=== PATIENT | female | born 1950 | race Caucasian/White ===

== ENCOUNTER → 2023-11-06 09:31 | Outpatient (REF) | payer BC, SELFPAY | LOC: HWRAD 09:31 | PROVIDERS: ATTENDING PHYSICIAN Nurse Practitioner Family | DX: R05.9 Cough, unspecified (principal) | CPT/HCPCS: 71046 ==

== ENCOUNTER 2024-02-08 20:40 | Emergency (ER) | payer BC, SELFPAY ==
[2024-02-08 20:44] VITALS: BP 168/98
[2024-02-08 21:00] LABS: % Basophils 0.7 % (0-2); % Immature Granulocytes 0.3 % (0-0.5); % Lymphocytes 25.5 % (20.5-51.1); % Monocytes 7.5 % (1.7-9.3); Absolute Basophils 0.1 10^3/uL (0-0.2); Absolute Eosinophils 0.4 10^3/uL (0-0.7); Absolute Lymphocytes 2.5 10^3/uL (1.2-3.4); Absolute Monocytes 0.7 10^3/uL (0.1-0.6); Hematocrit 38.5 % (37.0-47.0); Hemoglobin 12.9 g/dL (12.0-16.0); Mean Corp Hgb Conc. 33.5 g/dL (33.0-37.0); Mean Corpuscular Hgb 29.7 pg (27.0-31.0); Mean Corpuscular Volume 88.5 fL (81.0-99.0); Mean Platelet Volume 9.2 fL (7.4-10.4); Nucleated Red Blood Cells % 0 %; Platelet Count 328 10^3/uL (130-400); Red Blood Cell Count 4.35 10^6/uL (4.20-5.40); Red Cell Dist. Width 13.2 % (11.5-14.5); White Blood Cell Count 9.7 10^3/uL (4.8-10.8)
[2024-02-08 21:17] LABS: ALT (SGPT) 15 U/L (0-35); AST (SGOT) 28 U/L (14-36); Albumin 4.5 g/dl (3.5-5.0); Alkaline Phosphatase 66 U/L (38-126); Blood Urea Nitrogen 43 mg/dl (7-17); Carbon Dioxide 22 mmol/L (22-30); Chloride 108 mmol/L (98-107); Glucose 146 mg/dl (70-99); Potassium 4.6 mmol/L (3.5-5.1); Sodium 141 mmol/L (135-145); Total Bilirubin 0.5 mg/dl (0.2-1.3); Total Protein 7.6 g/dl (6.3-8.2); eGFR 48.09
[2024-02-08 22:00] VITALS: BP 140/81
[2024-02-08 22:20] VITALS: BMI 26.1
[2024-02-08 22:25] LABS: Urine Albumin Trace (Neg - Trace); Urine Bilirubin Negative (Negative); Urine Character Clear (Clear); Urine Color Yellow; Urine Glucose Negative (Negative); Urine Ketone Negative (Negative); Urine Leukocyte 1+ (Negative); Urine Nitrite Positive (Negative); Urine Occult Blood 3+ (Negative); Urine Specific Gravity 1.025 (<1.030); Urine Urobilinogen Negative (Neg - 1+)
[2024-02-08 22:31] LABS: Urine Squamous Cell 0-2 /LPF (Few); Urine White Cell Cast 0-2 /LPF
[2024-02-08 22:32] LABS: Urine Bacteria Many (Negative); Urine White Cell >100 /HPF (0-5)
[2024-02-08 23:00] VITALS: BP 136/78
--- NOTE | 2024-02-08 23:26 | ED.GENMED ---
Addendum entered and electronically signed by Jose Martin Reid PA-C 02/12/24 07:15:
Urine culture shows greater than 100,000 colony-forming units of E. coli that is sensitive to cephalosporins. On Omnicef, no change needed
Original Note:
History of Present Illness
General
Chief Complaint: Weakness
Source: patient
Exam Limitations: none
Time Seen by Provider: 02/08/24 22:06
Nursing documentation reviewed up to this point in time: agreed with
Travel History
Have you had any contact with someone who has COVID-19?: No
Do you have any symptoms of coronavirus? Fever > 100 degrees, chills, cough, shortness of breath, sore throat, loss of taste or smell, muscle aches, or headache?: No
History of Present Illness
History of Present Illness:
Patient with history of multiple sclerosis, currently not receiving any active treatment, presents to ED secondary to decreased appetite along with increased 'sleeping' at home over the past 1 week. Patient also reports 'feeling funny' when she
urinates. Denies fever or chills. Denies abdominal pain. Denies nausea or vomiting. Denies difficulty with urination. Denies back pain. Denies sick contact. Denies recent change in medications or diet.
Past History
Past History
ED Past Medical History: HTN and Other (Multiple Sclerosis)
Social History
Tobacco: Non-smoker
Alcohol: None
Drug: None
Personal:
Living: with family
Review of Systems
Review of Systems
Allergies reviewed?: Yes
All Other Systems: ROS reviewed and negative except as documented in HPI and ROS
Constitutional: Reports no symptoms; Denies fever or chills
Respiratory: Denies cough
ABD/GI: Reports no symptoms; Denies abdominal pain, nausea, vomiting or diarrhea
: Reports other (Funny feeling with urination)
Musculoskeletal: Reports no symptoms
Skin: Reports no symptoms
Neurological: Reports no symptoms
Phy Exam
Physical Exam
Physical Exam:
Physical Exam
General: no apparent distress, not acutely ill. afebrile
Head: nc/at. eomi
Neck: supple. no meningeal signs.
Heart: s1/s2 regular rate and rhythm, no murmur. equal radial pulses.
Lungs: no acute respiratory distress. clear bilaterally
Abdomen: normal bowel sounds. not tender.
Neuro: alert and oriented. no focal neurological deficits
Skin: no rash
Psychiatric: well kept. interactive and cooperative
Extremities: no edema. no calf tenderness.
Course
Orders/Labs/Results
Orders:
Orders
02/08/24 20:47
EKG [Electrocardiogram (*1)] Urgent
Reason for Study: Fatigue / Weakness
EKG- Treatment ONCE
02/08/24 20:51
Complete Blood Count/With Diff Urgent
Comprehensive Metabolic Panel Urgent
02/08/24 22:18
Urinalysis Reflex To Culture Urgent
Date Specimen was Collected: 02/08/24
Time Specimen was Collected: 22:17
Urine Microscopic Reflex Cult Urgent
Urine Culture Urgent
VICENTE Source: U
Specimen Description:
Date Specimen was Collected: 02/08/24
Time Specimen was Collected: 22:17
02/08/24 23:24
Cefdinir [Omnicef] 300 mg PO NOW STA
02/08/24 23:37
Blood Culture Q30M
VICENTE Source: Blood/Venous
Specimen Description:
02/09/24 00:00
Blood Culture Q30M
VICENTE Source: Blood/Venous
Specimen Description:
Abnormal Lab Results
02/08/24 02/08/24
20:51 22:18
Absolute Monos (auto) 0.7 H 10^3/uL
(0.1-0.6)
Chloride 108 H mmol/L
(98-107)
BUN 43 H mg/dl
(7-17)
Creatinine 1.2 H mg/dL
(0.6-1.0)
Glucose 146 H mg/dl
(70-99)
Ur Occult Blood Reflex 3+ A
(Negative)
Urine Nitrite (Reflex) Positive A
(Negative)
Leukocyte Esterase Rfl 1+ A
(Negative)
Urine RBC 11-15 A /HPF
(0-2)
Urine WBC (Reflex) >100 A /HPF
(0-5)
Urine Bacteria (Reflex) Many A
(Negative)
02/08/24 20:51
02/08/24 20:51
Vital Signs
Initial and Last Documented VS:
Initial Vital Signs
Temp Pulse Resp BP Pulse Ox
99.1 F 88 16 168/98 98
02/08/24 20:44 02/08/24 20:44 02/08/24 20:44 02/08/24 20:44 02/08/24 20:44
Last Documented Vital Signs
Temp Pulse Resp BP Pulse Ox
98.1 F 87 18 136/78 96
02/08/24 23:15 02/08/24 23:30 02/08/24 23:30 02/08/24 23:00 02/08/24 23:30
MDM/Problems Addressed
MDM/Problems Addressed:
Patient with an unremarkable workup in ED blood work in ED and remains afebrile and hemodynamically stable during prolonged course observation in ED. Urinalysis results reviewed and discussed with patient and family. UTI is likely an etiology
behind patient's symptoms at home. As such, decision made to treat patient with Omnicef x 7 days, along with PCP follow-up. Patient will return to ED with worsening symptoms. Patient and daughter express understanding at time of discharge.
Urine culture pending blood culture pending.
*Critical Care Note
Total Time (30-74mins, 75-104mins- exclusive of procedures): Not Applicable
ED Attending Note
-
Portions of this chart may have been created with voice recognition software.� Occasional wrong word or��sound alike� substitutions may have occurred due to the inherent limitations of voice recognition software.
Discharge Plan
Departure
Patient Disposition: Home (Routine Discharge)
Date of Disposition: 02/08/24
Time of Disposition: 23:29
Patient with high blood pressure during this ER visit?: Yes
Discharge Problem:
Acute UTI
Instructions: Urinary Tract Infection, Adult ED
Prescriptions:
New
cefdinir 300 mg capsule
300 mg PO BID Qty: 13 0RF
No Action
losartan 50 MG tablet
100 mg PO HS
tizanidine 4 MG tablet
4 mg PO TID
clonazepam 0.5 MG tablet
0.5 - 1 mg PO HS
Patient Comments:
12/07/2021: last filled 11/18/21, 60 tabs for 30 days from [facility]
ferrous sulfate [FeroSul] 325 MG tablet
325 mg PO DAILY
ascorbate calcium (vitamin C) [Angela-C] 500 MG tablet
500 mg PO TID
cranberry 400 MG capsule
400 mg PO DAILY
estradiol 1 APPLIC cream
1 applic VAG .3 X WEEK
cholecalciferol (vitamin D3) 2,000 UNITS tablet
5,000 units PO BID
Aubagio 14 MG tablet
14 mg PO DAILY
metoprolol succinate 50 MG tablet extended release 24 hr
50 mg PO HS
citalopram 10 MG tablet
10 mg PO HS
albuterol sulfate 90 mcg/actuation Hfa Aerosol Inhaler
2 puff inhalation R Q4HPRN PRN (Reason: sob/wheeze) 14 Days Qty: 6.7 0RF
Referrals:
Jennifer Mccoy MD [Family Provider] -
Interventions
Interventions:
*Risk Screen - Suicide Last Done: 02/08/24 20:44
*General Assessment Last Done: 02/08/24 20:44
*Neglect/Abuse Screening Last Done: 02/08/24 20:44
*Nursing Disposition Last Done: 02/09/24 00:04
ED- Cardiac Assessment Last Done: 02/08/24 21:49
ED- Neurological Assessment Last Done: 02/08/24 21:49
ED- Pulmonary Assessment Last Done: 02/08/24 21:49
Discharge Date and Time
Discharge Date/Time: 02/09/24 00:05
Print Language: [id number]
[2024-02-08] MEDS: OMNICEF 300 MG PO (23:39)
== END 2024-02-09 00:05 | disposition home or self-care (01) ==
LOC: EMR 20:40
PROVIDERS: Emergency Medicine; EMERGENCY PHYSICIAN Emergency Medicine; FAMILY PHYSICIAN Internal Medicine
DX: N39.0 Urinary tract infection, site not specified (principal); I10 Essential (primary) hypertension; G35 Multiple sclerosis
CPT/HCPCS: 99284; 80053; 81003; 81015; 85025; 87040; 87071; 87086; 87186; 93005

== ENCOUNTER → 2024-03-31 07:29 | Outpatient (REF) | payer BC, SELFPAY | LOC: PAVMRI 07:29 | PROVIDERS: ATTENDING PHYSICIAN Electrodiagnostic Medicine; FAMILY PHYSICIAN Internal Medicine | DX: G35 Multiple sclerosis (principal) | CPT/HCPCS: 70553; A9575 ==

== ENCOUNTER → 2024-04-14 07:47 | Outpatient (REF) | payer BC, SELFPAY | LOC: HWRAD 07:47 | PROVIDERS: ATTENDING PHYSICIAN Nurse Practitioner Family | DX: M81.0 Age-related osteoporosis without current pathological fracture (principal) | CPT/HCPCS: 77080 ==

== ENCOUNTER → 2024-07-08 07:36 | Outpatient (REF) | payer BC, SELFPAY | LOC: MRI 3T 07:36 | PROVIDERS: ATTENDING PHYSICIAN Electrodiagnostic Medicine; FAMILY PHYSICIAN Physician Assistant Medical | DX: G35 Multiple sclerosis (principal) | CPT/HCPCS: 72156; A9575 ==

== ENCOUNTER → 2024-11-27 11:28 | Outpatient (REF) | payer BC, SELFPAY | LOC: HWRAD 11:28 | PROVIDERS: ATTENDING PHYSICIAN Nurse Practitioner Family; FAMILY PHYSICIAN Internal Medicine | DX: R05.9 Cough, unspecified (principal) | CPT/HCPCS: 71046 ==

== ENCOUNTER → 2025-06-19 10:56 | Outpatient (REF) | payer BC, SELFPAY | LOC: RAD 10:56 | PROVIDERS: ATTENDING PHYSICIAN Nurse Practitioner Family | DX: M79.89 Other specified soft tissue disorders (principal) | CPT/HCPCS: 93971 ==